=== PATIENT | female | born 1990 | race African-American/Black ===

== ENCOUNTER → 2016-04-28 | Outpatient (REF) | payer OTHER ==
[2016-04-28 17:09] LABS: T UPTAKE 31 % (30-39); THYROXINE (T4) 8.3 UG/DL (4.5-12.0)
[2016-04-29 09:36] LABS: CONTROL LINE INT CTR LINE PRESENT; HIV SCRN NEGATIVE (NEGATIVE); HIV SCRN1 NEGATIVE (NEGATIVE)
== END | disposition home or self-care (01) ==
LOC: M SFHCLERA 10:22
PROVIDERS: ATTEND Family Medicine
DX: Z20.828 Contact with and (suspected) exposure to other viral communicable diseases (principal); E04.9 Nontoxic goiter, unspecified

== ENCOUNTER → 2016-06-17 | Outpatient (REF) | payer OTHER ==
[2016-06-18 11:41] LABS: FREE T4 1.03 NG/DL (0.76-1.46)
== END ==
LOC: M SFHCLERA 15:07
PROVIDERS: ATTEND Family Medicine
DX: E05.90 Thyrotoxicosis, unspecified without thyrotoxic crisis or storm (principal)

== ENCOUNTER 2016-07-08 12:11 | Emergency (ER) | payer OTHER ==
[~2016-07-08] VITALS: Ht 147.3 cm; Wt 56.7 kg
[2016-07-08] MEDS ORDERED: PARO10TA84 PO (12:38)
[2016-07-08 14:26] LABS: CONTROL LINE UCG INT CTR LINE PRESENT
[2016-07-08] MEDS ORDERED: METR500T10 PO (15:08)
[2016-07-08 15:20] VITALS: BP 131/78
== END 2016-07-08 15:22 | disposition home or self-care (01) ==
LOC: M ED 13:47
DX: N76.0 Acute vaginitis (principal); Z33.1 Pregnant state, incidental; J45.909 Unspecified asthma, uncomplicated; D64.9 Anemia, unspecified; F41.9 Anxiety disorder, unspecified; Z79.899 Other long term (current) drug therapy

== ENCOUNTER → 2016-07-15 | Outpatient (CLI) | payer OTHER ==
[~2016-07-15] MED LIST: METR500T10 PO; PARO10TA84 PO
== END ==
LOC: M LAB 12:39
PROVIDERS: ATTEND Nurse Practitioner Family
DX: Z32.01 Encounter for pregnancy test, result positive (principal)

== ENCOUNTER → 2016-10-27 | Outpatient (REF) | payer OTHER ==
[~2016-10-27] MED LIST changes: +MACR100C43 PO; +METR1TAB66 PO; -METR500T10 PO; +PARO10TA3 PO; -PARO10TA84 PO
== END ==
LOC: M SFHCLERA 10:28
PROVIDERS: ATTEND Nurse Practitioner Family
DX: N89.8 Other specified noninflammatory disorders of vagina (principal)

== ENCOUNTER → 2016-12-01 | Outpatient (CLI) | payer OTHER | LOC: M SMT 15:04 | PROVIDERS: ATTEND Specialist | DX: Z11.3 Encounter for screening for infections with a predominantly sexual mode of transmission (principal) ==

== ENCOUNTER 2017-01-25 14:46 | Emergency (ER) | payer OTHER ==
[~2017-01-25] VITALS: Ht 147.3 cm; Wt 56.4 kg
[~2017-01-25 14:46] MED LIST changes: -MACR100C43 PO
[2017-01-25 15:34] LABS: MEAN CORPUSCULAR HEMOGLOBIN 26.7 pg (27.0-33.0); MEAN CORPUSCULAR HGB CONC 31.1 g/dl (32.0-36.5); MEAN CORPUSCULAR VOLUME 85.8 fl (80.0-96.0); PLATELET COUNT, AUTOMATED 421 10^3/uL (150-450); RED CELL DISTRIBUTION WIDTH 12.7 % (11.5-14.5); WHITE BLOOD COUNT 7.2 10^3/uL (4.0-10.0)
[2017-01-25 15:36] LABS: ADD MANUAL DIFFER YES; DIFF SLIDE NUMBER 251
[2017-01-25 16:01] LABS: EOSINOPHILS 1 % (0-5)
--- NOTE | 2017-01-25 17:17 | REP ---
Emergency first trimester OB sonography: History: Vaginal bleeding. Findings: Transabdominal and transvaginal scanning are performed. Uterine dimensions are 9.5 x 4.9 x 6.3 cm. There is no evidence of normal gestational sac in the uterus. There is a tiny 2 mm cystic area in the anterior endometrium seen on transvaginal imaging which could conceivably be an early gestation. This would correspond with a 1-hsvz-7-day gestational age estimate by mean sac size diameter criteria. No free fluid or adnexal mass is seen on either side. The right ovary measures 2.8 x 2.3 x 1.8 cm. Left ovary dimensions are 4.0 x 3.0 x 1.6 cm. There is a 1.8 cm cyst in the left ovary consistent with corpus luteum. Resistive indices are 0.50 and 0.60 on the left and right respectively. Impression: 2 mm cystic area in the anterior endometrium. No definite intrauterine gestation. No adnexal mass or free fluid. Nonspecific findings. Ectopic cannot be completely excluded versus early IUP versus spontaneous miscarriage. Clinical and possible sonographic followup suggested. Signed by Rohit Kumar MD 01/25/2017 07:48 P
[2017-01-25] MEDS ORDERED: MACR100C43 PO (17:39)
[2017-01-25 17:49] VITALS: BP 126/79
--- NOTE | 2017-01-26 10:44 | ED PDOC ---
Post-Departure Follow-Up dr hendricks and dr higginbotham faxed formal report of 1st trimester us for fu Dain Jones MD Jan 26, 2017 10:44
== END 2017-01-25 17:50 | disposition home or self-care (01) ==
LOC: M ED 14:46
DX: O20.0 Threatened abortion (principal); O23.41 Unspecified infection of urinary tract in pregnancy, first trimester; O99.511 Diseases of the respiratory system complicating pregnancy, first trimester; J45.909 Unspecified asthma, uncomplicated; O99.341 Other mental disorders complicating pregnancy, first trimester; F41.9 Anxiety disorder, unspecified; Z3A.01 Less than 8 weeks gestation of pregnancy

== ENCOUNTER → 2017-01-29 | Outpatient (CLI) | payer OTHER ==
[~2017-01-29] MED LIST changes: +MACR100C43 PO
== END ==
LOC: M LAB 14:36
PROVIDERS: ATTEND Specialist
DX: O20.0 Threatened abortion (principal)

== ENCOUNTER → 2017-06-21 | Outpatient (REF) | payer OTHER | LOC: M SFHCLERA 16:12 | DX: J02.9 Acute pharyngitis, unspecified (principal) ==

== ENCOUNTER → 2017-12-13 | Outpatient (REF) | payer OTHER ==
[2017-12-13 19:47] LABS: HCG, SERUM QUANTITATIVE 21059 MIU/ML
[2017-12-13 20:07] LABS: HEMATOCRIT 39.5 % (36.0-47.0); MEAN CORPUSCULAR HGB CONC 32.9 g/dl (32.0-36.5); MEAN CORPUSCULAR VOLUME 88.2 fl (80.0-96.0); PLATELET COUNT, AUTOMATED 372 10^3/uL (150-450); RED BLOOD COUNT 4.48 10^6/uL (4.00-5.40); RED CELL DISTRIBUTION WIDTH 13.8 % (11.5-14.5); WHITE BLOOD COUNT 11.6 10^3/uL (4.0-10.0)
[2017-12-15 11:19] LABS: RUBELLA IgG QUALITATIVE IMMUNE (IMMUNE)
[2017-12-15 11:24] LABS: HBsAg Prenatal NEGATIVE (NEGATIVE)
[2017-12-15 11:49] LABS: HEPATITIS C VIRUS ABY INDEX 0.4 INDEX (<0.8)
[2017-12-15 11:49] LABS: HIV 1&2 SCREEN CENTAUR NEGATIVE (NEGATIVE)
== END ==
LOC: M LAB REF 16:56
DX: O36.80X0 Pregnancy with inconclusive fetal viability, not applicable or unspecified (principal)

== ENCOUNTER → 2018-01-18 | Outpatient (REF) | payer OTHER ==
[2018-01-18 14:44] LABS: CHLAMYDIA DNA AMPLIFICATION NEGATIVE (NEGATIVE); GC DNA AMPLIFICATION NEGATIVE (NEGATIVE)
== END ==
LOC: M LAB REF 12:19
DX: Z11.3 Encounter for screening for infections with a predominantly sexual mode of transmission (principal)

== ENCOUNTER 2018-03-07 17:20 | Outpatient (CLI) | payer OTHER ==
[2018-03-07 18:34] LABS: APPEARANCE, URINE CLEAR (CLEAR); BACTERIA, URINE AUTO 1+ (NEGATIVE); BILIRUBIN, URINE AUTO NEGATIVE (NEGATIVE); BLOOD, URINE BLOOD NEGATIVE (NEGATIVE); COLOR, URINE YELLOW (YELLOW); GLUCOSE, URINE (UA) AUTO NEGATIVE (NEGATIVE); KETONE, URINE AUTO NEGATIVE (NEGATIVE); LEUKOCYTE ESTERASE, URINE AUTO 1+ (NEGATIVE); MUCUS, URINE SMALL (NEGATIVE); NITRITE, URINE AUTO NEGATIVE (NEGATIVE); PROTEIN, URINE AUTO NEGATIVE (NEGATIVE); RBC, URINE AUTO 2 /HPF (0-3); SPECIFIC GRAVITY URINE AUTO 1.023 (1.002-1.035); SQUAMOUS EPITHELIAL CELL UR AU 1 /HPF (0-6); UROBILINOGEN, URINE AUTO 0.2 mg/dL (0.0-2.0); WBC, URINE AUTO 7 /HPF (0-3)
== END 2018-03-07 21:40 | disposition home or self-care (01) ==
LOC: M LDO 17:20
DX: O26.892 Other specified pregnancy related conditions, second trimester (principal); R10.2 Pelvic and perineal pain; Z3A.27 27 weeks gestation of pregnancy
CPT/HCPCS: 81001

== ENCOUNTER → 2018-03-17 | Outpatient (CLI) | payer OTHER ==
[2018-03-17 16:29] LABS: HEMATOCRIT 33.4 % (36.0-47.0); HEMOGLOBIN 10.8 g/dl (12.0-15.5); MEAN CORPUSCULAR HEMOGLOBIN 29.3 pg (27.0-33.0); MEAN CORPUSCULAR HGB CONC 32.3 g/dl (32.0-36.5); MEAN CORPUSCULAR VOLUME 90.5 fl (80.0-96.0); PLATELET COUNT, AUTOMATED 318 10^3/uL (150-450); RED BLOOD COUNT 3.69 10^6/uL (4.00-5.40); RED CELL DISTRIBUTION WIDTH 12.1 % (11.5-14.5); WHITE BLOOD COUNT 11.7 10^3/uL (4.0-10.0)
[2018-03-17 16:40] LABS: GLUCOSE CHALLENGE TEST 1 HOUR 81 MG/DL (LESS THAN 140)
== END ==
LOC: M LAB 15:00
DX: Z34.83 Encounter for supervision of other normal pregnancy, third trimester (principal); Z3A.00 Weeks of gestation of pregnancy not specified
CPT/HCPCS: 82950

== ENCOUNTER → 2018-04-28 | Outpatient (REF) | payer OTHER ==
[~2018-04-28] MED LIST changes: +DIFL150T PO; +METR-201 PO; -METR1TAB66 PO; +PRENTAB9 PO
== END ==
LOC: M LAB REF 16:33
PROVIDERS: ATTEND Obstetrics & Gynecology
DX: Z34.83 Encounter for supervision of other normal pregnancy, third trimester (principal)

== ENCOUNTER 2018-05-06 10:58 | Outpatient (CLI) | payer MEDICAID, OTHER, SELFPAY ==
[~2018-05-06] VITALS: Ht 147.3 cm; Wt 72.4 kg
[2018-05-06] MEDS ORDERED: FOLI1TAB11 PO (11:08)
[2018-05-06 11:13] VITALS: BP 114/68
[2018-05-06] MEDS ORDERED: LACTATED RINGER'S 1000 ML IV ONE (11:45)
[2018-05-06 12:31] LABS: APPEARANCE, URINE CLEAR (CLEAR); BACTERIA, URINE AUTO 1+ (NEGATIVE); BILIRUBIN, URINE AUTO NEGATIVE (NEGATIVE); BLOOD, URINE BLOOD NEGATIVE (NEGATIVE); COLOR, URINE YELLOW (YELLOW); GLUCOSE, URINE (UA) AUTO 1+ mg/dL (NEGATIVE); KETONE, URINE AUTO NEGATIVE (NEGATIVE); LEUKOCYTE ESTERASE, URINE AUTO 2+ (NEGATIVE); MUCUS, URINE SMALL (NEGATIVE); NITRITE, URINE AUTO NEGATIVE (NEGATIVE); PROTEIN, URINE AUTO NEGATIVE (NEGATIVE); RBC, URINE AUTO 2 /HPF (0-3); SPECIFIC GRAVITY URINE AUTO 1.008 (1.002-1.035); SQUAMOUS EPITHELIAL CELL UR AU 1 /HPF (0-6); UROBILINOGEN, URINE AUTO 0.2 mg/dL (0.0-2.0); WBC, URINE AUTO 8 /HPF (0-3)
[2018-05-06] MEDS ORDERED: KEFL500C17 PO (13:40)
== END 2018-05-06 13:35 | disposition home or self-care (01) ==
LOC: M LDO 10:58
PROVIDERS: ATTEND Obstetrics & Gynecology
DX: O99.89 Other specified diseases and conditions complicating pregnancy, childbirth and the puerperium (principal); Z3A.36 36 weeks gestation of pregnancy; O36.8130 Decreased fetal movements, third trimester, not applicable or unspecified; R30.0 Dysuria

== ENCOUNTER 2018-06-01 09:36 | Inpatient (IN) | payer OTHER ==
[~2018-06-01] VITALS: Ht 147.3 cm; Wt 74.3 kg
[2018-06-01] VITALS (25 sets, daily range): BP systolic 98–136; BP diastolic 53–96
[~2018-06-01 09:36] MED LIST changes: +FOLI1TAB11 PO; +KEFL500C17 PO
[2018-06-01] MEDS ORDERED: LACTATED RINGER'S 1000 ML IV STA (09:42)
[2018-06-01 10:37] LABS: HEMATOCRIT 32.1 % (36.0-47.0); HEMOGLOBIN 10.2 g/dl (12.0-15.5); MEAN CORPUSCULAR HEMOGLOBIN 27.1 pg (27.0-33.0); MEAN CORPUSCULAR HGB CONC 31.8 g/dl (32.0-36.5); MEAN CORPUSCULAR VOLUME 85.4 fl (80.0-96.0); PLATELET COUNT, AUTOMATED 375 10^3/uL (150-450); RED BLOOD COUNT 3.76 10^6/uL (4.00-5.40); WHITE BLOOD COUNT 10.4 10^3/uL (4.0-10.0)
[2018-06-01] MEDS: LR 1,000 ML IV SCH ×2 (12:04→17:30)
[2018-06-01] MEDS: miSOPROStol 50 MCG 1/2 TAB (S0191) PO SCH ×3 (12:30→20:00)
[2018-06-01] MEDS ORDERED: OXYTOCIN DRIP 30 UNITS in APPROPRIATE DILUENT 1 EA IV SCH (18:45)
[2018-06-01] MEDS ORDERED: FENTANYL 2MCG/ML ROPIVACAINE 0.2% IN 0.9% NACL 100ML IVBAG As Ordered ONE (21:57)
[2018-06-01] MEDS: FENTANYL/ROPIVACAINE/NACL BAG 100 ML EPIDURAL SCH (23:11)
[2018-06-01] MEDS ORDERED: EPIDURAL COMMENT XX SCH (23:15)
[2018-06-01] MEDS ORDERED: ePHEDrine SULFATE 25 MG/5 ML(5MG/ML) SYRINGE IV PRN (23:15)
[2018-06-01] MEDS ORDERED: diphenhydrAMINE INJ 50MG/ML VIAL (J1200) IV PRN (23:15)
[2018-06-01] MEDS ORDERED: EPIDURAL/PCA KEYS XX PRN (23:15)
[2018-06-01] MEDS ORDERED: NALOXONE INJ 0.4 MG/1 ML VIAL (J2310) IV PRN (23:15)
[2018-06-01] MEDS ORDERED: REFRIGERATOR IV KEYS XX PRN (23:15)
[2018-06-01] MEDS ORDERED: LACTATED RINGER'S 1000 ML IV PRN (23:15)
[2018-06-01] MEDS ORDERED: ONDANSETRON 4MG/2ML VIAL (J2405) IV PRN (23:15)
[2018-06-02] VITALS (27 sets, daily range): BP systolic 103–131; BP diastolic 56–85
[2018-06-02] MEDS: LR 1,000 ML IV SCH (01:42)
[2018-06-02] MEDS: miSOPROStol 50 MCG 1/2 TAB (S0191) PO SCH ×2 (04:00)
[2018-06-02] MEDS ORDERED: AMPICILLIN SOD 2 GM in D5W MINI-BAG PLUS 100 ML IV ONE (06:00)
[2018-06-02] MEDS: FENTANYL/ROPIVACAINE/NACL BAG 100 ML EPIDURAL SCH (06:55)
[2018-06-02] MEDS ORDERED: OXYTOCIN 30 UNITS IN 0.9% NaCl 500ML IV BAG (J2590) As Ordered ONE (08:17)
[2018-06-02 15:08] LABS: CORD GAS ABE A -9.6; CORD GAS ABE V -7.1; CORD GAS HCO3 A 20.2 MEQ/L; CORD GAS HCO3 V 19.3 MEQ/L; CORD GAS O2 SAT A 51.7 %; CORD GAS O2 SAT V 54.7 %; CORD GAS PCO2 A 60.1 mmHg; CORD GAS PH V 7.281 UNITS; CORD GAS PO2 A 26.5 mmHg; CORD GAS SBC V 17.8 MEQ/L; CORD GAS TCO2 A 22.1 MEQ/L; CORD GAS TCO2 V 20.6 MEQ/L
[2018-06-02 15:09] LABS: CORD GAS PH A 7.145 UNITS
[2018-06-02] MEDS ORDERED: MEASLES,MUMPS,RUBELLA VACCINE INJ (MMR-II) (90707) SC SCH (15:15)
[2018-06-02] MEDS ORDERED: DOCUSATE SODIUM 100 MG CAP PO PRN (15:15)
[2018-06-02] MEDS ORDERED: METHYLERGONOVINE MALEATE 0.2 MG TAB PO PRN (15:15)
[2018-06-02] MEDS ORDERED: ACETAMINOPHEN 500 MG TAB PO PRN (15:15)
[2018-06-02] MEDS ORDERED: OXYTOCIN DRIP 30 UNITS in APPROPRIATE DILUENT 1 EA IV SCH (15:15)
[2018-06-02] MEDS ORDERED: DIBUCAINE 1% OINTMENT 30GM TOP PRN (15:15)
[2018-06-02] MEDS ORDERED: RHOGAM 300 MCG (1500 IU) INJ (J2790) IM SCH (15:15)
[2018-06-02] MEDS: IBUPROFEN 800 MG TAB PO PRN (17:28)
--- NOTE | 2018-06-02 18:01 | HPE ---
DATE OF ADMISSION: 06/01/2018 Dandy is a 27-year-old female, 4, para 1-0-2-1 with an estimated date of confinement (EDC) of 06/02/2018, estimated gestational age (EGA) 39-6/7 weeks gestation who is being admitted for elective induction. Upon admission no bleeding. No leakage of fluid. Good movement. Her record reviewed, which was essentially unremarkable. LABORATORIES: Blood type is. Blood type is A positive, rubella immune. Hepatitis negative, HIV negative, GC/chlamydia negative. One-hour sugar testing was within normal limits. Her GBS is negative. PAST MEDICAL HISTORY: Denies. PAST SURGICAL HISTORY: Denies. SOCIAL HISTORY: She denies any alcohol, drugs, or cigarette smoking. REVIEW OF SYSTEMS: Unremarkable. MEDICATIONS: vitamins ALLERGIES: No known drug allergies. PHYSICAL EXAMINATION: Normal-appearing female in no acute distress. Abdomen soft, nontender, nondistended. Extremities: No clubbing, cyanosis or edema. Vaginal exam: Fingertip to 1 cm dilated, 50% effaced. Fetus at -3 station in vertex position. Tracing reviewed: Category 1 tracing. ASSESSMENT AND PLAN: Intrauterine at 39-6/7 weeks gestation, being admitted for an induction. PLAN: Admit to labor and delivery. Induction process discussed with the patient in great detail. Decision made to proceed with Cytotec with potential artificial rupture of membranes and Pitocin induction. Risks and benefits discussed with the patient as well as the limitation on induction. We only have Cytotec and Arceo bulb as well as Pitocin for induction. The patient is fully aware, risks and benefits discussed, and she agrees to proceed with the induction process.
[2018-06-03] MEDS: IBUPROFEN 800 MG TAB PO PRN ×2 (06:25→20:58)
[2018-06-03 06:48] VITALS: BP 119/73
[2018-06-03] MEDS: PRENATAL VITAMINS CHEWABLE TABLET PO SCH (09:00)
[2018-06-03 18:00] VITALS: BP 133/57
--- NOTE | 2018-06-03 23:24 | DN ---
DATE OF DELIVERY: 06/02/2018 Dandy is a 27-year-old female 4, para 1-0-2-1 was admitted at 39-6/7 weeks gestation for induction. She underwent Cytotec followed by artificial rupture of membranes and Pitocin induction. She then progressed to fully dilated and delivered a live female in occiput posterior position with a nuchal cord x1. weight 7 pounds, 8 ounces. Placenta delivered spontaneously intact. Three-vessel cord. Second-degree midline perineal laceration noted, which was repaired using #2-0 Chromic. Estimated blood loss 300 mL. Both mother and baby in stable condition. edited: 06/05/2018 1346 tkf XENA
[2018-06-04 06:31] VITALS: BP 106/75
[2018-06-04] MEDS: PRENATAL VITAMINS CHEWABLE TABLET PO SCH (09:00)
[2018-06-04] MEDS ORDERED: ACET500T15 PO (09:29)
[2018-06-04] MEDS ORDERED: MOTR200T44 PO (09:29)
== END 2018-06-04 14:45 | disposition home or self-care (01) | DRG 560 ==
LOC: M LDI 09:36 → M OBS 06-02 16:58
PROVIDERS: ADMIT Obstetrics & Gynecology; ATTEND Obstetrics & Gynecology
PROC: 3E0P7GC Introduction of Other Therapeutic Substance into Female Reproductive, Via Natural or Artificial Opening (ICD-10-PCS; 2018-06-01)
PROC: 10E0XZZ Delivery of Products of Conception, External Approach (ICD-10-PCS; principal; 2018-06-02)
PROC: 0KQM0ZZ Repair Perineum Muscle, Open Approach (ICD-10-PCS; 2018-06-02)
PROC: 10907ZC Drainage of Amniotic Fluid, Therapeutic from Products of Conception, Via Natural or Artificial Opening (ICD-10-PCS; 2018-06-02)
DX: O70.1 Second degree perineal laceration during delivery (principal); Z3A.39 39 weeks gestation of pregnancy; Z37.0 Single live birth

== ENCOUNTER → 2018-10-13 | Outpatient (CLI) | payer OTHER ==
[~2018-10-13] MED LIST changes: +ACET500T15 PO; -METR-201 PO; +METR-265 PO; +MOTR200T44 PO
--- NOTE | 2018-10-13 14:26 | REP ---
Clinical: Trauma. Technique: AP, lateral, bilateral oblique views left foot . Findings: The osseous structures and joint spaces are intact and normal. There is no evidence for acute fracture or dislocation. Surrounding soft tissues are unremarkable. No subcutaneous emphysema or radiodense foreign body. Impression: No acute fracture or dislocation. Electronically Signed by Gunnar Talamantes MD 10/13/2018 02:17 P
== END ==
LOC: M LRY 13:40
PROVIDERS: ATTEND Nurse Practitioner Family
DX: S99.922A Unspecified injury of left foot, initial encounter (principal); X58.XXXA Exposure to other specified factors, initial encounter; Y92.89 Other specified places as the place of occurrence of the external cause

== ENCOUNTER → 2019-05-16 | Outpatient (REF) | payer OTHER ==
[2019-05-16 16:54] LABS: FREE T4 1.12 NG/DL (0.76-1.46); THYROID STIMULATING HORMONE 0.214 uIU/ML (0.358-3.740)
== END ==
LOC: M SFHCLERA 10:36
PROVIDERS: ATTEND Family Medicine
DX: E05.90 Thyrotoxicosis, unspecified without thyrotoxic crisis or storm (principal)

== ENCOUNTER → 2019-05-23 | Outpatient (REF) | payer OTHER ==
[2019-05-23 22:06] LABS: CHLAMYDIA DNA AMPLIFICATION NEGATIVE (NEGATIVE); GC DNA AMPLIFICATION NEGATIVE (NEGATIVE)
[2019-05-24 12:27] LABS: HIV 1&2 SCREEN CENTAUR NEGATIVE (NEGATIVE)
== END ==
LOC: M SFHCLERA 14:21
PROVIDERS: ATTEND Family Medicine
DX: A59.9 Trichomoniasis, unspecified (principal)

== ENCOUNTER 2019-12-25 13:22 | Emergency (ER) | payer OTHER ==
[~2019-12-25] VITALS: Ht 147.3 cm; Wt 58.9 kg
[2019-12-25 13:58] LABS: BASO % 0.6 % (0.0-1.0); EOS # 0.1 10^3/uL (0.0-0.5); EOS % 1.6 % (0.0-3.0); HEMATOCRIT 36.4 % (36.0-47.0); LYMPH % 44.9 % (24.0-44.0); MEAN CORPUSCULAR HEMOGLOBIN 24.8 pg (27.0-33.0); MEAN CORPUSCULAR HGB CONC 30.2 g/dl (32.0-36.5); MONO # 0.6 10^3/uL (0.0-0.8); MONO % 8.6 % (0.0-5.0); NEUTROPHILS % 44.2 % (36.0-66.0); PLATELET COUNT, AUTOMATED 406 10^3/uL (150-450); RED BLOOD COUNT 4.44 10^6/uL (4.00-5.40); WHITE BLOOD COUNT 6.7 10^3/uL (4.0-10.0)
[2019-12-25 14:31] LABS: BLOOD UREA NITROGEN 8 MG/DL (7-18); CALCIUM LEVEL 8.7 MG/DL (8.5-10.1); CARBON DIOXIDE LEVEL 24 MEQ/L (21-32); CHLORIDE LEVEL 112 MEQ/L (98-107); GLOMERULAR FILTRATION RATE > 60.0 (>60); GLUCOSE, FASTING 94 MG/DL (70-100); HCG, SERUM QUANTITATIVE < 1.0 MIU/ML; POTASSIUM SERUM 4.2 MEQ/L (3.5-5.1); SODIUM LEVEL 141 MEQ/L (136-145)
--- NOTE | 2019-12-25 15:03 | REPVR ---
PROCEDURE INFORMATION: Exam: US Pelvis Complete, Transabdominal and US Duplex Artery or Vein, Ovaries, Limited Exam date and time: 12/25/2019 2:38 PM Age: 29 years old Clinical indication: Pelvic pain; Additional info: Right sided pelvic pain TECHNIQUE: Imaging protocol: Real-time transabdominal pelvic ultrasound with image documentation. Real-time duplex ultrasound scan of the arterial or venous flow of the ovaries with B-mode, color Doppler flow and spectral waveform analysis. Complete Pelvis, Limited Duplex. COMPARISON: No relevant prior studies available. FINDINGS: Uterus/cervix: The uterus measures 8.9 x 4.4 x 6.6 cm. It is anteverted and homogeneous in echotexture, without demonstrated lesion. The endometrium measures 10 mm in thickness. Right adnexa: The right ovary measures 3.0 x 2.1 x 2.7 cm and contains small follicles. It demonstrates normal internal flow, peak systolic velocity 28.8 cm/s, end-diastolic velocity 14.2 cm/s and resistive index 0.51. Left adnexa: The left ovary measures 2.3 x 1.7 x 2.0 cm and contains small follicles. It demonstrates normal internal arterial flow, with peak systolic velocity 21.1 cm/s, end-diastolic velocity 8.2 cm/s and resistive index 0.61. Free fluid: No significant free fluid is demonstrated. Bladder: Unremarkable as partially visualized. IMPRESSION: 1. Unremarkable uterus, with the endometrium 10 mm in thickness. 2. Small bilateral ovarian follicles. 3. Normal internal arterial flow to both ovaries. Electronically signed by: Aniceto Lindo On 12/25/2019 15:03:00 PM
[2019-12-25] MEDS ORDERED: FLAG500T PO (15:37)
[2019-12-25 15:49] LABS: CHLAMYDIA DNA AMPLIFICATION NEGATIVE (NEGATIVE); GC DNA AMPLIFICATION NEGATIVE (NEGATIVE)
[2019-12-25 16:02] VITALS: BP 124/85
== END 2019-12-25 16:00 | disposition home or self-care (01) ==
LOC: M ED 13:22
DX: N83.01 Follicular cyst of right ovary (principal); N83.02 Follicular cyst of left ovary; N76.0 Acute vaginitis

== ENCOUNTER → 2020-01-02 | Outpatient (CLI) | payer OTHER ==
[~2020-01-02] MED LIST changes: +FLAG500T PO
[2020-01-02 11:11] LABS: C REACTIVE PROTEIN QUANTITATIV < 0.30 MG/DL (0.00-0.30); FREE T4 1.08 NG/DL (0.76-1.46); THYROID STIMULATING HORMONE 0.379 uIU/ML (0.358-3.740)
== END ==
LOC: M LAB 09:18
PROVIDERS: ATTEND Family Medicine
DX: R19.5 Other fecal abnormalities (principal)

== ENCOUNTER → 2020-04-01 | Outpatient (CLI) | payer OTHER | LOC: M LABSMTC 14:21 | PROVIDERS: ATTEND Family Medicine | DX: Z20.828 Contact with and (suspected) exposure to other viral communicable diseases (principal) ==

== ENCOUNTER 2020-04-18 10:52 | Emergency (ER) | payer OTHER ==
[2020-04-18] MEDS ORDERED: ACET-683 PO (10:59)
[2020-04-18 12:21] LABS: BASO % 0.5 % (0.0-1.0); EOS # 0.1 10^3/uL (0.0-0.5); HEMATOCRIT 35.5 % (36.0-47.0); HEMOGLOBIN 10.6 g/dl (12.0-15.5); LYMPH # 2.2 10^3/uL (1.5-5.0); LYMPH % 39.2 % (24.0-44.0); MEAN CORPUSCULAR HEMOGLOBIN 26.4 pg (27.0-33.0); MEAN CORPUSCULAR HGB CONC 29.9 g/dl (32.0-36.5); MEAN CORPUSCULAR VOLUME 88.3 fl (80.0-96.0); MONO # 0.6 10^3/uL (0.0-0.8); MONO % 10.5 % (0.0-5.0); NEUTROPHILS # 2.6 10^3/uL (1.5-8.5); NEUTROPHILS % 47.6 % (36.0-66.0); PLATELET COUNT, AUTOMATED 386 10^3/uL (150-450); RED BLOOD COUNT 4.02 10^6/uL (4.00-5.40); WHITE BLOOD COUNT 5.5 10^3/uL (4.0-10.0)
[2020-04-18 12:34] LABS: INR 1.07; PARTIAL THROMBOPLASTIN TIME 27.5 SECONDS (24.2-38.5); PROTHROMBIN TIME 14.1 SECONDS (12.5-14.3)
[2020-04-18 12:37] LABS: D-DIMER QUANT 316.4 ng/ml (<500)
--- NOTE | 2020-04-18 13:04 | REP ---
INDICATION: Coronavirus workup COMPARISON: None. TECHNIQUE: Portable AP view of the chest FINDINGS: The mediastinum and cardiac silhouette are within normal limits for portable technique. The lung maxwell are clear without acute consolidation, effusion, or pneumothorax. Skeletal structures are intact. IMPRESSION: No acute cardiopulmonary process appreciated. <Electronically signed by Gunnar Talamantes > 04/18/20 1300
[2020-04-18] MEDS ORDERED: VENTAER INH (13:15)
[2020-04-18 13:20] VITALS: BP 121/79
--- NOTE | 2020-04-18 13:39 | ECGEPIP ---
[facility] - ED Test Date: 2020-04-18 Pat Name: YVAN MEJIA Department: Room: - Gender: Female Associate Professor Of Biology: TATY : 1990 Requested By: SHUBHAM MARSH Order Number: [id number] Reading MD: Zaida Granado Measurements Intervals [place] Rate: 71 P: 63 OK: 194 QRS: 57 QRSD: 82 T: 47 QT: 363 QTc: 397 Interpretive Statements SINUS RHYTHM No prior Electronically Signed on 04-18-2020 13:39:01 EST by Zaida Granado
== END 2020-04-18 13:21 | disposition home or self-care (01) ==
LOC: M ED 10:52
DX: J45.909 Unspecified asthma, uncomplicated (principal); Z09 Encounter for follow-up examination after completed treatment for conditions other than malignant neoplasm; Z86.19 Personal history of other infectious and parasitic diseases; F41.9 Anxiety disorder, unspecified

== ENCOUNTER 2020-11-29 03:26 | Emergency (ER) | payer OTHER ==
[~2020-11-29] VITALS: Ht 147.3 cm; Wt 64.0 kg
[~2020-11-29 03:26] MED LIST changes: +ACET-683 PO; +VENTAER INH
[2020-11-29 07:41] LABS: BASO # 0.1 10^3/uL (0.0-0.2); BASO % 0.6 % (0.0-1.0); EOS # 0.3 10^3/uL (0.0-0.5); EOS % 3.8 % (0.0-3.0); HEMATOCRIT 39.9 % (36.0-47.0); HEMOGLOBIN 12.2 g/dl (12.0-15.5); LYMPH % 37.2 % (24.0-44.0); MEAN CORPUSCULAR HEMOGLOBIN 26.1 pg (27.0-33.0); MEAN CORPUSCULAR HGB CONC 30.6 g/dl (32.0-36.5); MEAN CORPUSCULAR VOLUME 85.4 fl (80.0-96.0); MONO # 0.8 10^3/uL (0.0-0.8); MONO % 9.6 % (2.0-8.0); NEUTROPHILS # 3.9 10^3/uL (1.5-8.5); NEUTROPHILS % 48.6 % (36.0-66.0); PLATELET COUNT, AUTOMATED 435 10^3/uL (150-450); RED BLOOD COUNT 4.67 10^6/uL (4.00-5.40); WHITE BLOOD COUNT 8.1 10^3/uL (4.0-10.0)
[2020-11-29 08:03] LABS: ALBUMIN 4.2 GM/DL (3.2-5.2); ALT/SGPT 20 U/L (12-78); BILIRUBIN,DIRECT 0.1 MG/DL (0.0-0.2); BILIRUBIN,TOTAL 0.7 MG/DL (0.2-1.0); BLOOD UREA NITROGEN 16 MG/DL (7-18); CALCIUM LEVEL 8.3 MG/DL (8.5-10.1); CARBON DIOXIDE LEVEL 24 MEQ/L (21-32); CHLORIDE LEVEL 111 MEQ/L (98-107); CREATININE FOR GFR 0.81 MG/DL (0.55-1.30); GLOMERULAR FILTRATION RATE > 60.0 (>60); GLUCOSE, FASTING 99 MG/DL (70-100); LIPASE 128 U/L (73-393); SODIUM LEVEL 138 MEQ/L (136-145); TOTAL PROTEIN 8.1 GM/DL (6.4-8.2)
--- NOTE | 2020-11-29 08:22 | REP ---
INDICATION: lower abd/pelvic pain. COMPARISON: Pelvic ultrasound dated 12/25/2019. TECHNIQUE: Multiple ultrasonographic images of the pelvis including transabdominal, endovaginal and Doppler ultrasound. FINDINGS: The bladder is adequately distended. The uterus is anteverted and normal size measuring 8.5 x 4.5 x 5.3 cm. The endometrium is not thickened measuring 10.9 mm. The myometrium is unremarkable. Right ovary: The right ovary measures 2.3 x 1.4 x 2.3 cm and is normal size. There is no dominant right ovarian mass or cyst. Left ovary: The left ovary contains a simple follicle measuring 1.3 x 1.2 x 1.5 cm and contains a complex follicle measuring 1.3 x 1.0 by 1.6 cm. The complex follicles likely and hemorrhagic follicle. Including these follicles the left ovary is normal size measuring 3.3 x 2.3 x 2.2 cm. There is a trace of free fluid in the cul-de-sac. There is vascular flow in both ovaries with the Doppler resistive index in the parenchymal arteries of the right ovary measuring 0.48 and left ovary 0.37. IMPRESSION: There are 2 follicles in the left ovary: Simple follicle measuring up to 1.5 cm and a complex follicle measuring up to 1.6 cm. The complex follicles is likely an hemorrhagic follicle. There is vascular flow in both ovaries. There is a trace of free fluid in the cul-de-sac. <Electronically signed by Eyad Edwards > 11/29/20 0841
[2020-11-29] MEDS ORDERED: FLUCONAZOLE 50MG TABLET PO ONE (08:35)
[2020-11-29 08:59] LABS: GC DNA AMPLIFICATION NEGATIVE (NEGATIVE)
[2020-11-29 09:12] VITALS: BP 128/78
== END 2020-11-29 09:34 | disposition home or self-care (01) ==
LOC: M ED 06:18
DX: N83.02 Follicular cyst of left ovary (principal); B37.9 Candidiasis, unspecified; J45.909 Unspecified asthma, uncomplicated; F41.9 Anxiety disorder, unspecified; Z87.440 Personal history of urinary (tract) infections; Z86.19 Personal history of other infectious and parasitic diseases

== ENCOUNTER → 2021-03-04 | Outpatient (CLI) | payer OTHER ==
[2021-03-04 16:43] LABS: BASO # 0.1 10^3/uL (0.0-0.2); BASO % 0.9 % (0.0-1.0); EOS # 0.2 10^3/uL (0.0-0.5); EOS % 1.9 % (0.0-3.0); HEMATOCRIT 38.6 % (36.0-47.0); HEMOGLOBIN 11.9 g/dl (12.0-15.5); LYMPH # 3.8 10^3/uL (1.5-5.0); LYMPH % 47.4 % (24.0-44.0); MEAN CORPUSCULAR HEMOGLOBIN 26.4 pg (27.0-33.0); MEAN CORPUSCULAR HGB CONC 30.8 g/dl (32.0-36.5); MEAN CORPUSCULAR VOLUME 85.8 fl (80.0-96.0); MONO # 0.9 10^3/uL (0.0-0.8); MONO % 11.4 % (2.0-8.0); NEUTROPHILS # 3.1 10^3/uL (1.5-8.5); NEUTROPHILS % 38.3 % (36.0-66.0); PLATELET COUNT, AUTOMATED 450 10^3/uL (150-450); WHITE BLOOD COUNT 8.1 10^3/uL (4.0-10.0)
[2021-03-04 17:18] LABS: ALBUMIN 4.3 GM/DL (3.2-5.2); ALT/SGPT 17 U/L (12-78); BLOOD UREA NITROGEN 8 MG/DL (7-18); CALCIUM LEVEL 9.6 MG/DL (8.5-10.1); CARBON DIOXIDE LEVEL 25 MEQ/L (21-32); CHLORIDE LEVEL 107 MEQ/L (98-107); CREATININE FOR GFR 0.74 MG/DL (0.55-1.30); FREE T4 1.29 NG/DL (0.76-1.46); GLOMERULAR FILTRATION RATE > 60.0 (>60); GLUCOSE, FASTING 81 MG/DL (70-100); POTASSIUM SERUM 4.1 MEQ/L (3.5-5.1); SODIUM LEVEL 139 MEQ/L (136-145); THYROID STIMULATING HORMONE 0.117 uIU/ML (0.358-3.740); TOTAL PROTEIN 7.9 GM/DL (6.4-8.2)
== END ==
LOC: M LAB 15:55
PROVIDERS: ATTEND Student in an Organized Health Care Education/Training Program
DX: Z00.00 Encounter for general adult medical examination without abnormal findings (principal); F41.9 Anxiety disorder, unspecified

== ENCOUNTER → 2023-07-07 | Outpatient (CLI) | payer OTHER ==
[2023-07-07 18:54] LABS: BASO # 0.1 10^3/uL (0.0-0.2); BASO % 0.7 % (0.0-1.0); EOS # 0.1 10^3/uL (0.0-0.5); HEMATOCRIT 38.6 % (36.0-47.0); HEMOGLOBIN 12.3 g/dl (12.0-15.5); LYMPH # 3.9 10^3/uL (1.5-5.0); MEAN CORPUSCULAR HEMOGLOBIN 27.4 pg (27.0-33.0); MEAN CORPUSCULAR HGB CONC 31.9 g/dl (32.0-36.5); MONO # 1.2 10^3/uL (0.0-0.8); MONO % 11.6 % (2.0-8.0); NEUTROPHILS # 4.8 10^3/uL (1.5-8.5); NEUTROPHILS % 47.6 % (36.0-66.0); PLATELET COUNT, AUTOMATED 410 10^3/uL (150-450); RED BLOOD COUNT 4.49 10^6/uL (4.00-5.40); WHITE BLOOD COUNT 10.1 10^3/uL (4.0-10.0)
[2023-07-07 19:33] LABS: ALKALINE PHOSPHATASE 65 U/L (46-116); ALT/SGPT 10 U/L (7.0-40); AST/SGOT 9 U/L (<34); BILIRUBIN,TOTAL 0.7 MG/DL (0.3-1.2); BLOOD UREA NITROGEN 6 MG/DL (9-23); CARBON DIOXIDE LEVEL 24 MMOL/L (20-31); CHLORIDE LEVEL 112 MMOL/L (98-107); CREATININE FOR GFR 0.74 MG/DL (0.55-1.30); GLOMERULAR FILTRATION RATE > 60.0 (>60); GLUCOSE, FASTING 90 MG/DL (60-100); POTASSIUM SERUM 3.8 MMOL/L (3.5-5.1); SODIUM LEVEL 143 MMOL/L (136-145); TOTAL PROTEIN 7.1 G/DL (5.7-8.2)
[2023-07-07 19:34] LABS: THYROID STIMULATING HORMONE 0.488 uIU/ML (0.55-4.78); TOTAL 25(OH) VITAMIN D 7.8 NG/ML (20.0-100.0)
[2023-07-07 19:35] LABS: FOLATE > 24.0 NG/ML (>5.4); FREE T4 1.07 NG/DL (0.89-1.76); VITAMIN B12 LEVEL 945 PG/ML (211-911)
== END ==
LOC: M LAB 18:27
PROVIDERS: ATTEND Physician Assistant
DX: F41.1 Generalized anxiety disorder (principal)

== ENCOUNTER 2023-08-23 13:43 | Emergency (ER) | payer OTHER ==
[~2023-08-23] VITALS: Ht 147.3 cm; Wt 71.2 kg
[~2023-08-23 13:43] MED LIST changes: -HYDR-643; -VENL75CA47
[2023-08-23 13:44] VITALS: BP 137/82; TEMP 98.4; O2SAT 100
[2023-08-23] MEDS ORDERED: HYDR-643 (13:58)
[2023-08-23] MEDS ORDERED: VENL75CA47 (13:58)
[2023-08-23 16:27] LABS: BASO # 0.1 10^3/uL (0.0-0.2); BASO % 0.7 % (0.0-1.0); EOS # 0.2 10^3/uL (0.0-0.5); EOS % 2.3 % (0.0-3.0); HEMOGLOBIN 11.9 g/dl (12.0-15.5); LYMPH # 3.6 10^3/uL (1.5-5.0); LYMPH % 38.9 % (24.0-44.0); MEAN CORPUSCULAR HEMOGLOBIN 27.4 pg (27.0-33.0); MEAN CORPUSCULAR HGB CONC 31.3 g/dl (32.0-36.5); MEAN CORPUSCULAR VOLUME 87.4 fl (80.0-96.0); MONO # 0.9 10^3/uL (0.0-0.8); MONO % 10.3 % (2.0-8.0); NEUTROPHILS # 4.4 10^3/uL (1.5-8.5); NEUTROPHILS % 47.7 % (36.0-66.0); PLATELET COUNT, AUTOMATED 443 10^3/uL (150-450); RED BLOOD COUNT 4.35 10^6/uL (4.00-5.40); WHITE BLOOD COUNT 9.2 10^3/uL (4.0-10.0)
[2023-08-23 16:45] LABS: LIPASE 34 U/L (12-53)
[2023-08-23 16:47] LABS: ALKALINE PHOSPHATASE 65 U/L (46-116); ALT/SGPT 10 U/L (7.0-40); AST/SGOT 16 U/L (<34); BILIRUBIN,DIRECT 0.2 MG/DL (<0.4); BILIRUBIN,TOTAL 0.5 MG/DL (0.3-1.2); BLOOD UREA NITROGEN 5 MG/DL (9-23); CALCIUM LEVEL 8.9 MG/DL (8.5-10.1); CARBON DIOXIDE LEVEL 24 MMOL/L (20-31); CHLORIDE LEVEL 110 MMOL/L (98-107); CREATININE FOR GFR 0.69 MG/DL (0.55-1.30); GLOMERULAR FILTRATION RATE > 60.0 (>60); GLUCOSE, FASTING 73 MG/DL (60-100); SODIUM LEVEL 141 MMOL/L (136-145); TOTAL PROTEIN 7.3 G/DL (5.7-8.2)
[2023-08-23 16:54] LABS: HCG, SERUM QUALITATIVE NEGATIVE (NEGATIVE)
[2023-08-23] MEDS ORDERED: ISOVUE-370 76% 100ML VIAL As Ordered ONE (17:11)
[2023-08-23] MEDS: ACETAMINOPHEN 500 MG TAB PO ONE (18:38)
[2023-08-23 18:50] LABS: Trichomonas vaginalis (AMP) NOT DETECTED (NEGATIVE)
[2023-08-23 19:13] LABS: GC DNA AMPLIFICATION NEGATIVE (NEGATIVE)
== END 2023-08-23 20:20 | disposition left against medical advice (07) ==
LOC: M ED 13:43
DX: R10.9 Unspecified abdominal pain (principal); J45.909 Unspecified asthma, uncomplicated; Z79.899 Other long term (current) drug therapy; Z53.9 Procedure and treatment not carried out, unspecified reason
CPT/HCPCS: 36415; 74177; 76856; 80048; 80076; 81001; 83690; 84703; 85025; 87486; 87581; 87633; 87661; 87798; 87810; 87850; 93976; 99283; Q9967

== ENCOUNTER → 2023-08-23 | Outpatient (CLI) | payer OTHER ==
[~2023-08-23] MED LIST changes: +HYDR-643; +VENL75CA47
[2023-08-23 13:41] LABS: HCG, SERUM QUALITATIVE NEGATIVE (NEGATIVE)
== END ==
LOC: M LAB 12:37
PROVIDERS: ATTEND Physician Assistant
DX: N92.6 Irregular menstruation, unspecified (principal)

== ENCOUNTER → 2023-11-05 | Outpatient (CLI) | payer OTHER ==
[~2023-11-05] MED LIST changes: +HYDR-643; +VENL75CA47
[2023-11-05 17:06] LABS: THYROID STIMULATING HORMONE 0.207 uIU/ML (0.55-4.78)
[2023-11-05 17:07] LABS: FREE T4 1.02 NG/DL (0.89-1.76)
[2023-11-05 19:39] LABS: THYROID PEROXIDASE ANTIBODY < 28.0 U/ML (<60.0); TOTAL T3 133.8 NG/DL (60.0-181.0)
== END ==
LOC: M LAB 16:00
PROVIDERS: ATTEND Nurse Practitioner Family
DX: R94.6 Abnormal results of thyroid function studies (principal)

== ENCOUNTER → 2024-08-07 | Outpatient (CLI) | payer OTHER ==
[2024-08-07 15:15] LABS: THYROID STIMULATING HORMONE 0.166 uIU/ML (0.55-4.78)
[2024-08-07 15:17] LABS: FREE T4 1.22 NG/DL (0.89-1.76)
[2024-08-07 15:20] LABS: TOTAL T3 101.9 NG/DL (60.0-181.0)
== END ==
LOC: M LAB 14:14
PROVIDERS: ATTEND Nurse Practitioner Family
DX: E05.00 Thyrotoxicosis with diffuse goiter without thyrotoxic crisis or storm (principal)